=== PATIENT | male | born 1965 | race Caucasian/White ===

== ENCOUNTER 2017-04-09 15:57 | Emergency (ER) | payer OTHER ==
[~2017-04-09] VITALS: Ht 188 cm; Wt 86.0 kg
[~2017-04-09 15:57] MED LIST: GABA300C16 PO; TEST200V19 IM
[2017-04-09 16:01] VITALS: Ht 188 cm; Wt 86.0 kg
--- NOTE | 2017-04-09 16:49 | ERD ---
ER Documentation Chief Complaint Date/Time DATE: 04/09/17 TIME: 16:42 Chief Complaint sent by pmd for abnormal ekg , deneis any cp , no sob HPI This is a 51-year-old gentleman who presents to the emergency room with potential report of an abnormal EKG. The patient states that he went to Dr. Dorado's office for an initial evaluation. The patient was asymptomatic. He had a screening EKG that was reported to be abnormal and he was sent emergently to the ER. He denies any symptoms, no chest pain or shortness of breath no exertional symptoms no exertional fatigue no history of abnormal EKGs, cardiac disease or family history of cardiac disease. ROS All systems reviewed and are negative except as per history of present illness. Medications Home Meds Active Scripts Testosterone Cypionate (Testosterone Cypionate) 200 Mg/1 Ml Vial, 225 MG IM q7 Days, #1 VIAL 0 Refills Prov:JACK BERNSTEIN MD 07/20/16 Reported Medications Gabapentin* (Gabapentin*) 300 Mg Capsule, 600 MG PO TID, #180 CAP 07/20/16 Allergies Allergies: Coded Allergies: No Known Drug Allergies (Verified Allergy, Unknown, 07/20/16) PMhx/Soc History of Surgery: Yes (THYROIDECTOMY) Anesthesia Reaction: No Hx Neurological Disorder: Yes (SPINAL STENOSIS, SCOLIOSIS) Hx Respiratory Disorders: No Hx Cardiac Disorders: No Hx Psychiatric Problems: No Hx Miscellaneous Medical Probl: Yes (HYPOTHYROIDISM) Hx Alcohol Use: No Hx Substance Use: No Hx Tobacco Use: Yes Smoking Status: Current every day smoker FmHx Family History: No diabetes Physical Exam Vitals Vital Signs Date Time Temp Pulse Resp B/P Pulse Ox O2 Delivery O2 Flow Rate FiO2 04/09/17 16:25 93 16 99 Room Air 04/09/17 16:01 98.1 101 18 183/97 98 Physical Exam General: Well developed, well nourished, no acute distress Head: Normocephalic, atraumatic. Eyes: Pupils equally reactive, EOM intact ENT: Moist mucous membranes Neck: Supple, no lymphadenopathy Respiratory: Lungs clear bilaterally, no distress Cardiovascular: RRR, no murmurs, rubs, or gallops Abdominal: Soft, non-tender, non-distended, no peritoneal signs : Deferred MSK: No edema, no unilateral swelling, 5/5 strength Neurologic: Alert and oriented, moving all extremities, normal speech, no focal weakness, no cerebellar signs Skin: No rash Psych: Normal mood Procedures/MDM EKG from office EKG: I reviewed and interpreted a 12-lead EKG. Rhythm: Normal sinus rhythm Ectopy: None Intervals: No abnormalities ST segments: No elevations or depressions T waves: No contiguous inversions EKG from the ER EKG: I reviewed and interpreted a 12-lead EKG. Rhythm: Normal sinus rhythm Ectopy: None Intervals: No abnormalities ST segments: No elevations or depressions T waves: No contiguous inversions The patient was sent for an abnormal EKG. What I believe happened is that the EKG machine at the office read "consider inferior infarct ". However based on my evaluation of the EKG there are no Q waves in the inferior leads there are no T-wave inversions in the inferior leads and there are no ST segment abnormalities in the inferior leads. It appears that the provider was concerned based on the computer printout rather than actually reading the EKG. On my EKG in the emergency room there are no signs of cardiac ischemia. The patient has a normal sinus rhythm with normal intervals including a normal QRS and QTc. There are no Q waves, no hyperacute T waves and no ST segment abnormalities in all anatomical areas of the EKG. More importantly, the patient does not have any risk factors for early cardiac disease other than smoking history. The patient has no chest pain no shortness of breath no exertional symptoms and no signs or symptoms of acute cardiac process. At this time I believe that laboratory testing is unnecessary. I will reach out to the referring provider and physicians communications assistant to send the patient to the emergency room. I believe routine outpatient primary care is appropriate for this patient. He does not have an emergent medical condition and absolutely does not have an abnormal EKG. I called the referring office and the physician's communications assistant that I spoke to could not give me the phone to Dr. Castellano as he has gone home for the day. I informed her that there is no evidence of abnormal EKG and the patient can be referred to their office. Departure Diagnosis: Primary Impression: Encounter for medical screening examination Condition: Stable Patient Instructions: Medical Screening Exam, Nonurgent Additional Instructions: Call your primary care doctor TOMORROW for an appointment during the next 1 WEEK.Tell the area secretary that you were referred from this facility.See the doctor sooner or return here if your condition worsens before your appointment time. ANGELA AGUERO MD Apr 09, 2017 16:49
[2017-04-09 17:04] VITALS: BP 174/86; PULSE 89; RESP 14; TEMP 97.9
== END 2017-04-09 17:17 | disposition home or self-care (01) ==
LOC: E/R 15:57
DX: Z13.9 Encounter for screening, unspecified (principal); F17.210 Nicotine dependence, cigarettes, uncomplicated; E03.9 Hypothyroidism, unspecified
CPT/HCPCS: 93005; Z7502